=== PATIENT | female | born 1990 | race Caucasian/White ===

== ENCOUNTER 2020-02-12 16:26 | Outpatient (CLI) | payer OTHER ==
[2020-02-12 17:04] LABS: BASOPHILS 0.1 % (0-2); EOSINOPHILS 0.4 % (0-7); HEMATOCRIT 36.7 % (36.0-48.0); HEMOGLOBIN 12.1 g/dL (12-16); IMMATURE GRANULOCYTES 0.4 % (0-5); LYMPHOCYTES 16.3 % (15-50); MCH 30.1 pg (26.0-34.0); MCV 91.3 fL (80.0-100.0); MEAN PLATELET VOLUME 9.9 fL (7.4-10.4); MONOCYTES 6.1 % (2-11); NEUTROPHILS 76.7 % (40-80); PLATELET COUNT 248 10x3/uL (130-400); RBC 4.02 10x6/uL (4.00-5.40); WBC 15.2 10x3/uL (4.8-10.8)
[2020-02-12 17:23] LABS: CALC OSMOLALITY 274 mosm/kg (275-300); CALCIUM 8.7 mg/dL (8.5-10.1); CARBON DIOXIDE 24.3 mmol/L (21.0-32.0); CHLORIDE - SERUM 107 mmol/L (98-107); CREATININE - SERUM 0.8 mg/dL (0.6-1.3); POTASSIUM - SERUM 4.1 mmol/L (3.5-5.1); SODIUM 139 mmol/L (136-145); UREA NITROGEN 9 mg/dL (7-18); eGFR NON AFRICAN AMERICAN 89 mL/min (90-120)
[2020-02-12 17:29] LABS: GLUCOSE 67 mg/dL (74-106)
[2020-02-12 17:36] LABS: ALBUMIN 2.4 g/dL (3.4-5.0); ALKALINE PHOSPHATASE 90 U/L (30-120); ALT (SGPT) 10 U/L (10-68); URIC ACID 7.3 mg/dL (2.6-7.2)
[2020-02-12 17:48] LABS: BILIRUBIN - DIRECT 0.03 mg/dL (0.00-0.30); BILIRUBIN - INDIRECT 0.17 mg/dL (0.00-1.00); PROTEIN - SERUM 6.6 g/dL (6.4-8.2)
[2020-02-12 19:10] LABS: UDS - AMPHET NEGATIVE QUAL (NEGATIVE); UDS - BARB NEGATIVE QUAL (NEGATIVE); UDS - BENZO NEGATIVE QUAL (NEGATIVE); UDS - COCAINE NEGATIVE QUAL (NEGATIVE); UDS - OPIATE NEGATIVE QUAL (NEGATIVE); UDS - PCP NEGATIVE QUAL (NEGATIVE); UDS - THC POSITIVE QUAL (NEGATIVE)
[2020-02-12 19:12] LABS: BILIRUBIN NEGATIVE (NEGATIVE); KETONE NEGATIVE (NEGATIVE); NITRITE NEGATIVE (NEGATIVE); UROBILINOGEN NORMAL (NORMAL)
[2020-02-14 11:21] LABS: PROTEIN - URINE 16.4 mg/dL (0.0-11.9)
== END 2020-02-12 23:59 | disposition home or self-care (01) ==
LOC: D.LDO 16:26 → D.LD 22:58 → D.LDO 22:58 → D.LD 23:59 → D.LDO 23:59
PROVIDERS: Student in an Organized Health Care Education/Training Program; ATTEND Obstetrics & Gynecology
DX: O16.9 Unspecified maternal hypertension, unspecified trimester (principal)

== ENCOUNTER → 2020-02-13 16:43 | Outpatient (CLI) | payer OTHER | END | disposition home or self-care (01) | LOC: D.LDO 16:43 | PROVIDERS: ATTEND Obstetrics & Gynecology | DX: O16.9 Unspecified maternal hypertension, unspecified trimester (principal) ==

== ENCOUNTER 2020-02-15 18:49 | Outpatient (CLI) | payer OTHER ==
[2020-02-15 20:12] LABS: HEMATOCRIT 37.5 % (36.0-48.0); HEMOGLOBIN 12.3 g/dL (12-16); MCH 29.8 pg (26.0-34.0); MCHC 32.8 g/dL (31.0-37.0); MCV 90.8 fL (80.0-100.0); MEAN PLATELET VOLUME 9.8 fL (7.4-10.4); RBC 4.13 10x6/uL (4.00-5.40); RDW 13.9 % (11.5-14.5); WBC 14.5 10x3/uL (4.8-10.8)
[2020-02-15 20:41] LABS: CALC OSMOLALITY 271 mosm/kg (275-300); CALCIUM 8.5 mg/dL (8.5-10.1); CARBON DIOXIDE 24.1 mmol/L (21.0-32.0); CHLORIDE - SERUM 105 mmol/L (98-107); CREATININE - SERUM 0.8 mg/dL (0.6-1.3); POTASSIUM - SERUM 4.1 mmol/L (3.5-5.1); SODIUM 137 mmol/L (136-145); UREA NITROGEN 13 mg/dL (7-18); eGFR NON AFRICAN AMERICAN 89 mL/min (90-120)
[2020-02-15 20:45] LABS: URIC ACID 7.5 mg/dL (2.6-7.2)
[2020-02-15 20:46] LABS: GLUCOSE 68 mg/dL (74-106)
[2020-02-16] MEDS ORDERED: KLONOPIN1 MG PO (03:40)
[2020-02-16 07:14] LABS: HEMATOCRIT 34.4 % (36.0-48.0); HEMOGLOBIN 11.1 g/dL (12-16); MCH 29.4 pg (26.0-34.0); MCHC 32.3 g/dL (31.0-37.0); MEAN PLATELET VOLUME 10.5 fL (7.4-10.4); RBC 3.78 10x6/uL (4.00-5.40); RDW 14.1 % (11.5-14.5); WBC 12.4 10x3/uL (4.8-10.8)
[2020-02-16 07:42] LABS: ALT (SGPT) 8 U/L (10-68); CALCIUM 8.2 mg/dL (8.5-10.1); CARBON DIOXIDE 22.3 mmol/L (21.0-32.0); CHLORIDE - SERUM 106 mmol/L (98-107); CREATININE - SERUM 0.8 mg/dL (0.6-1.3); POTASSIUM - SERUM 4.1 mmol/L (3.5-5.1); SODIUM 140 mmol/L (136-145); UREA NITROGEN 15 mg/dL (7-18); URIC ACID 7.6 mg/dL (2.6-7.2); eGFR NON AFRICAN AMERICAN 89 mL/min (90-120)
[2020-02-16 08:01] LABS: CALC OSMOLALITY 277 mosm/kg (275-300); GLUCOSE 59 mg/dL (74-106)
--- NOTE | 2020-02-16 08:55 | NUR ---
PT C/O HEADACHE. TYLENOL 650 MG GIVEN PO PER DR. CUMMINGS.
== END 2020-02-16 10:42 | disposition home or self-care (01) ==
LOC: D.LDO 18:49 → D.LD 21:31 → D.LDO 02-16 10:42
PROVIDERS: ATTEND Student in an Organized Health Care Education/Training Program
DX: O13.3 Gestational [pregnancy-induced] hypertension without significant proteinuria, third trimester (principal); Z3A.33 33 weeks gestation of pregnancy

== ENCOUNTER 2020-02-21 11:32 | Outpatient (CLI) | payer OTHER ==
[~2020-02-21 11:32] MED LIST: KLONOPIN1 MG PO
[2020-02-21 12:56] LABS: BASOPHILS 0.1 % (0-2); HEMATOCRIT 34.7 % (36.0-48.0); HEMOGLOBIN 11.3 g/dL (12-16); IMMATURE GRANULOCYTES 0.2 % (0-5); LYMPHOCYTES 21.3 % (15-50); MCH 29.7 pg (26.0-34.0); MCHC 32.6 g/dL (31.0-37.0); MCV 91.3 fL (80.0-100.0); MEAN PLATELET VOLUME 10.1 fL (7.4-10.4); MONOCYTES 8.6 % (2-11); NEUTROPHILS 68.8 % (40-80); PLATELET COUNT 221 10x3/uL (130-400); RDW 14.1 % (11.5-14.5); WBC 13.5 10x3/uL (4.8-10.8)
[2020-02-21 13:22] LABS: CALC OSMOLALITY 270 mosm/kg (275-300); CALCIUM 8.4 mg/dL (8.5-10.1); CARBON DIOXIDE 23.4 mmol/L (21.0-32.0); CHLORIDE - SERUM 105 mmol/L (98-107); CREATININE - SERUM 0.8 mg/dL (0.6-1.3); SODIUM 136 mmol/L (136-145); UREA NITROGEN 14 mg/dL (7-18); eGFR NON AFRICAN AMERICAN 89 mL/min (90-120)
[2020-02-21 13:24] LABS: GLUCOSE 68 mg/dL (74-106)
[2020-02-21 13:28] LABS: ALBUMIN 2.5 g/dL (3.4-5.0); ALKALINE PHOSPHATASE 102 U/L (30-120); ALT (SGPT) 9 U/L (10-68); BILIRUBIN - DIRECT 0.03 mg/dL (0.00-0.30); BILIRUBIN - INDIRECT 0.15 mg/dL (0.00-1.00); BILIRUBIN - TOTAL 0.18 mg/dL (0.2-1.3); PROTEIN - SERUM 5.5 g/dL (6.4-8.2); URIC ACID 6.1 mg/dL (2.6-7.2)
== END 2020-02-21 14:30 | disposition home or self-care (01) ==
LOC: D.LDO 11:32
PROVIDERS: ATTEND Obstetrics & Gynecology
DX: O16.9 Unspecified maternal hypertension, unspecified trimester (principal)

== ENCOUNTER 2020-02-24 18:42 | Observation (INO) | payer OTHER ==
[2020-02-24] MEDS ORDERED: NORMODYNE / TR100 MG PO (19:37)
[2020-02-24 20:22] LABS: BASOPHILS 0.1 % (0-2); EOSINOPHILS 0.6 % (0-7); HEMATOCRIT 34.7 % (36.0-48.0); HEMOGLOBIN 11.4 g/dL (12-16); IMMATURE GRANULOCYTES 0.3 % (0-5); MCHC 32.9 g/dL (31.0-37.0); MCV 91.3 fL (80.0-100.0); MEAN PLATELET VOLUME 10.5 fL (7.4-10.4); MONOCYTES 6.4 % (2-11); NEUTROPHILS 75.6 % (40-80); PLATELET COUNT 257 10x3/uL (130-400); WBC 17.9 10x3/uL (4.8-10.8)
[2020-02-24 20:28] LABS: CALC OSMOLALITY 271 mosm/kg (275-300); CALCIUM 8.6 mg/dL (8.5-10.1); CARBON DIOXIDE 21.8 mmol/L (21.0-32.0); CHLORIDE - SERUM 105 mmol/L (98-107); CREATININE - SERUM 0.8 mg/dL (0.6-1.3); GLUCOSE 78 mg/dL (74-106); POTASSIUM - SERUM 4.4 mmol/L (3.5-5.1); SODIUM 136 mmol/L (136-145); UREA NITROGEN 14 mg/dL (7-18); eGFR NON AFRICAN AMERICAN 89 mL/min (90-120)
[2020-02-24 20:35] LABS: ALBUMIN 2.5 g/dL (3.4-5.0); ALKALINE PHOSPHATASE 104 U/L (30-120); ALT (SGPT) 9 U/L (10-68); BILIRUBIN - DIRECT 0.06 mg/dL (0.00-0.30); BILIRUBIN - INDIRECT 0.05 mg/dL (0.00-1.00); BILIRUBIN - TOTAL 0.11 mg/dL (0.2-1.3); PROTEIN - SERUM 5.6 g/dL (6.4-8.2); URIC ACID 6.4 mg/dL (2.6-7.2)
[2020-02-24 23:30] LABS: BILIRUBIN NEGATIVE (NEGATIVE); KETONE NEGATIVE (NEGATIVE); NITRITE NEGATIVE (NEGATIVE); UROBILINOGEN NORMAL mg/dL (< 2)
[2020-02-25 09:16] LABS: BASOPHILS 0.1 % (0-2); EOSINOPHILS 1.3 % (0-7); HEMATOCRIT 38.5 % (36.0-48.0); HEMOGLOBIN 12.6 g/dL (12-16); IMMATURE GRANULOCYTES 0.4 % (0-5); LYMPHOCYTES 25.7 % (15-50); MCH 30.1 pg (26.0-34.0); MCHC 32.7 g/dL (31.0-37.0); MCV 91.9 fL (80.0-100.0); MEAN PLATELET VOLUME 10.4 fL (7.4-10.4); MONOCYTES 6.9 % (2-11); NEUTROPHILS 65.6 % (40-80); PLATELET COUNT 259 10x3/uL (130-400); RBC 4.19 10x6/uL (4.00-5.40); RDW 14.1 % (11.5-14.5); WBC 13.8 10x3/uL (4.8-10.8)
--- NOTE | 2020-02-25 10:34 | MORECARE ---
CASE MANAGEMENT DISCHARGE SUMMARY PATIENT: IRENE CUMMINGS UNIT: [id number] ADM DATE: 02/24/20 AGE: 29 : 88 SEX: F ROOM/BED: D.1276 AUTHOR: ARMIN SILVA PHYSICIAN: REFERRING PHYSICIAN: EVELYNE CORDERO MD DATE OF SERVICE: 02/25/20 Discharge Plan Patient Name: IRENE CUMMINGS Facility: [facility]:[place] : 1990 Planned Disposition: Home Anticipated Discharge Date: 02/25/20 Discharge Date: Expected LOS: 1 Initial Reviewer: [email or web address] Initial Review Date: 02/24/2020 Generated: 02/25/20 11:33 am Patient Name: IRENE CUMMINGS Page 87012 at 1034 All edits/amendments must be made on the electronic document DICTATION DATE: 02/25/20 1033 HARDWARE DEVELOPER: LUÍS 02/25/20 1033 RPT#: [id number] DC DATE: STATUS: ADM IN [facility] [address] [place] [address] END OF REPORT
[2020-02-25 12:03] LABS: PROTEIN - URINE 17.2 mg/dL (0.0-11.9)
--- NOTE | 2020-02-25 17:50 | MORECARE ---
CASE MANAGEMENT DISCHARGE SUMMARY PATIENT: IRENE CUMMINGS UNIT: [id number] ADM DATE: 02/24/20 AGE: 29 : 88 SEX: F ROOM/BED: D.1276 AUTHOR: ARMIN SILVA PHYSICIAN: REFERRING PHYSICIAN: EVELYNE CORDERO MD DATE OF SERVICE: 02/25/20 Discharge Plan Patient Name: IRENE CUMMINGS Facility: [facility]:[place] : 1990 Planned Disposition: Home Anticipated Discharge Date: 02/25/20 Discharge Date: 02/25/2020 Expected LOS: 1 Initial Reviewer: [email or web address] Initial Review Date: 02/25/2020 Generated: 02/25/20 6:49 pm Last DP export: 02/25/20 9:34 a Patient Name: IRENE CUMMINGS Page 96977 at 1750 All edits/amendments must be made on the electronic document DICTATION DATE: 02/25/201749 DIRECTOR INSURANCE: LUÍS 02/25/201749 RPT#: [id number] DC DATE:02/25/20 STATUS: DIS IN [facility] [address] [place] [address] END OF REPORT
== END 2020-02-25 14:13 | disposition home or self-care (01) ==
LOC: D.LDO 18:42 → OBSVTIME 20:10 → D.LD 20:10
PROVIDERS: ADMIT Obstetrics & Gynecology; ATTEND Obstetrics & Gynecology
DX: O13.3 Gestational [pregnancy-induced] hypertension without significant proteinuria, third trimester (principal); Z3A.34 34 weeks gestation of pregnancy

== ENCOUNTER 2020-02-27 09:05 | Inpatient (IN) | payer OTHER ==
[~2020-02-27] VITALS: Ht 177.8 cm; Wt 98.4 kg
--- NOTE | ~2020-02-27 | OP ---
PATIENT NAME: IRENE CUMMINGS MEDICAL RECORD: [id number] :[birth year] LOCATION:[facility] [id number] ADMISSION DATE:02/27/20 SURGEON: SILVESTRE BERNABE MD DATE OF OPERATION: 03/05/2020 PREOPERATIVE DIAGNOSES: 1. Intrauterine at 36 weeks. 2. Severe preeclampsia. 3. The patient desires primary section. POSTOPERATIVE DIAGNOSES: 1. Intrauterine at 36 weeks. 2. Severe preeclampsia. 3. The patient desires primary section. PROCEDURE: A primary low transverse section. SURGEON: Silvestre Bernabe MD ANESTHESIA: Regional via spinal. INTRAVENOUS FLUIDS: Per anesthesia record. ESTIMATED BLOOD LOSS: 1000 cc. SPECIMENS: Placenta and cord for gases. FINDINGS: 1. Viable , Apgars 9 at one and 9 at five. 2. Placenta delivered manually intact, 3-vessel cord noted. 3. Normal adnexa bilaterally. COMPLICATIONS: None apparent. PROCEDURE: The patient taken to the operating room where regional anesthesia was achieved without difficulty. The patient was then prepped and draped in normal sterile fashion in the dorsal supine position. SCDs were on and functioning normally. A Heath catheter had been placed and was draining freely. Following testing prep and drape, a Pfannenstiel skin incision was made, extended downward to the underlying subcutaneous fat to level of the fascia. The fascia was then excised in the midline and extended bilaterally using the Jung scissors and Bovie cautery. The superior and inferior aspects of the fascial incision were grasped with Ari clamps times 2, tented upward, and sharply dissected from the underlying rectus muscle using the Jung scissors and the Bovie cautery. Rectus muscle was bluntly in the midline and the peritoneum entered sharply at the superior aspect of the incision using the Metzenbaum scissors. The peritoneal incision was then extended laterally and inferiorly using the Metzenbaum scissors. A bladder blade was placed into the pelvis and a bladder flap was created by excising the anterior leaf of the broad ligament across the lower uterine segment. This was further developed digitally and the bladder blade was replaced over the bladder flap. A low transverse incision was made on the uterus with the scalpel and extended using the Pelosi method. The vertex was delivered atraumatically followed by the body. The infant was bulb suctioned upon delivery. Cord was clamped times 2, cut, and infant handed to the awaiting nursery team. Cord was then obtained for gases. OPERATIVE REPORT [id number] IRENE CUMMINGS Placenta was removed manually intact, 3-vessel cord was noted. Uterus was exteriorized, cleared of all clots and debris with a lap sponge and the uterine incision was repaired with 0 Vicryl in a running locked fashion times 2 with good hemostasis noted. Several areas of oozing from the uterine incision were oversewn with 0 Vicryl in a [id number]-jk-[id number] fashion until good hemostasis was recognized. The posterior cul-de-sac was then thoroughly irrigated and uterus was replaced into the pelvis. Anterior cul-de-sac was then thoroughly irrigated and good hemostasis was noted from the uterine incision. Counts were correct times 2 for sponges, needles, and instruments and the fascia was then repaired with 0 loop PDS times 1 and the skin repaired with mario. The patient tolerated procedure well, transferred to postanesthesia recovery stable without incident. TRANSINT:[id number] Voice Confirmation ID: [id number] DOCUMENT ID: [id number] SILVESTRE BERNABE MD CC: [id number] DICTATION DATE: 03/11/20 1545 SENIOR SOLUTIONS ENGINEER: 03/12/20 0118 DIS IN 03/06/20 [facility] [address] [place] [id number]
[~2020-02-27 09:05] MED LIST changes: +NORMODYNE / TR100 MG PO
[2020-02-27 11:12] LABS: BASOPHILS 0.1 % (0-2); EOSINOPHILS 0.9 % (0-7); HEMOGLOBIN 11.7 g/dL (12-16); IMMATURE GRANULOCYTES 0.5 % (0-5); LYMPHOCYTES 21.3 % (15-50); MCH 29.8 pg (26.0-34.0); MCHC 32.5 g/dL (31.0-37.0); MCV 91.8 fL (80.0-100.0); MEAN PLATELET VOLUME 10.5 fL (7.4-10.4); MONOCYTES 8.9 % (2-11); NEUTROPHILS 68.3 % (40-80); PLATELET COUNT 248 10x3/uL (130-400); RBC 3.92 10x6/uL (4.00-5.40); WBC 13.8 10x3/uL (4.8-10.8)
[2020-02-27 11:19] LABS: CALC OSMOLALITY 273 mosm/kg (275-300); CALCIUM 8.9 mg/dL (8.5-10.1); CARBON DIOXIDE 23.4 mmol/L (21.0-32.0); CHLORIDE - SERUM 107 mmol/L (98-107); CREATININE - SERUM 0.8 mg/dL (0.6-1.3); GLUCOSE 85 mg/dL (74-106); POTASSIUM - SERUM 4.3 mmol/L (3.5-5.1); SODIUM 137 mmol/L (136-145); UREA NITROGEN 15 mg/dL (7-18); eGFR NON AFRICAN AMERICAN 89 mL/min (90-120)
[2020-02-27 11:25] LABS: ALBUMIN 2.4 g/dL (3.4-5.0); ALKALINE PHOSPHATASE 102 U/L (30-120); ALT (SGPT) 10 U/L (10-68); PROTEIN - SERUM 5.9 g/dL (6.4-8.2); URIC ACID 6.8 mg/dL (2.6-7.2)
[2020-02-27 11:29] LABS: UDS - AMPHET NEGATIVE QUAL (NEGATIVE); UDS - BARB NEGATIVE QUAL (NEGATIVE); UDS - BENZO POSITIVE QUAL (NEGATIVE); UDS - COCAINE NEGATIVE QUAL (NEGATIVE); UDS - OPIATE NEGATIVE QUAL (NEGATIVE); UDS - PCP NEGATIVE QUAL (NEGATIVE); UDS - THC POSITIVE QUAL (NEGATIVE)
[2020-02-27 11:38] LABS: BILIRUBIN - INDIRECT 0.14 mg/dL (0.00-1.00); BILIRUBIN - TOTAL 0.16 mg/dL (0.2-1.3)
[2020-02-27 11:42] LABS: BILIRUBIN - DIRECT 0.02 mg/dL (0.00-0.30)
[2020-02-27 12:03] VITALS: BP 151/86; BMI 31.2
[2020-02-28 07:18] LABS: RAPID PLASMA REAGIN Non Reactive (Non Reactive)
[2020-02-28 13:39] VITALS: Ht 177.8 cm; Wt 98.4 kg
--- NOTE | 2020-02-29 17:28 | MORECARE ---
CASE MANAGEMENT DISCHARGE SUMMARY PATIENT: IRENE CUMMINGS UNIT: [id number] ADM DATE: 02/27/20 AGE: 29 : 86 SEX: F ROOM/BED: D.1273 AUTHOR: ARMIN SILVA PHYSICIAN: REFERRING PHYSICIAN: EVELYNE CORDERO MD DATE OF SERVICE: 02/29/20 Discharge Plan Patient Name: IRENE CUMMINGS Facility: [facility]:[place] : 1990 Planned Disposition: Home Anticipated Discharge Date: Discharge Date: Expected LOS: Initial Reviewer: [email or web address] Initial Review Date: 02/27/2020 Generated: 02/29/20 6:27 pm Patient Name: IRENE CUMMINGS Page 53096 at 1728 All edits/amendments must be made on the electronic document DICTATION DATE: 02/29/201726 STOPPER SETTER: LUÍS 02/29/201726 RPT#: [id number] DC DATE: STATUS: ADM IN [facility] [address] [place] [address] END OF REPORT
[2020-02-29 19:55] VITALS: BP 134/83
[2020-02-29 21:21] LABS: BASOPHILS 0.1 % (0-2); EOSINOPHILS 0.5 % (0-7); HEMATOCRIT 36.2 % (36.0-48.0); HEMOGLOBIN 12.1 g/dL (12-16); IMMATURE GRANULOCYTES 0.4 % (0-5); LYMPHOCYTES 19.1 % (15-50); MCH 30.6 pg (26.0-34.0); MCHC 33.4 g/dL (31.0-37.0); MCV 91.4 fL (80.0-100.0); MEAN PLATELET VOLUME 10.3 fL (7.4-10.4); NEUTROPHILS 73.9 % (40-80); PLATELET COUNT 254 10x3/uL (130-400); RBC 3.96 10x6/uL (4.00-5.40); RDW 13.8 % (11.5-14.5); WBC 15.2 10x3/uL (4.8-10.8)
[2020-02-29 21:34] LABS: ALBUMIN 2.5 g/dL (3.4-5.0); ALKALINE PHOSPHATASE 103 U/L (30-120); ALT (SGPT) 8 U/L (10-68); BILIRUBIN - TOTAL 0.28 mg/dL (0.2-1.3); CALC OSMOLALITY 271 mosm/kg (275-300); CALCIUM 8.7 mg/dL (8.5-10.1); CARBON DIOXIDE 23.1 mmol/L (21.0-32.0); CHLORIDE - SERUM 105 mmol/L (98-107); CREATININE - SERUM 0.8 mg/dL (0.6-1.3); GLUCOSE 109 mg/dL (74-106); POTASSIUM - SERUM 3.8 mmol/L (3.5-5.1); PROTEIN - SERUM 6.3 g/dL (6.4-8.2); SODIUM 135 mmol/L (136-145); UREA NITROGEN 14 mg/dL (7-18); eGFR NON AFRICAN AMERICAN 89 mL/min (90-120)
[2020-02-29 22:10] LABS: BILIRUBIN NEGATIVE (NEGATIVE); KETONE NEGATIVE (NEGATIVE); NITRITE NEGATIVE (NEGATIVE); UROBILINOGEN NORMAL mg/dL (< 2)
[2020-02-29 22:15] LABS: BACTERIA FEW HPF (NONE SEEN); EPITHELIAL CELLS 0-5 /hpf (0-5); WHITE CELLS - URINE 0-5 HPF (0-4)
[2020-03-01 00:15] VITALS: BP 118/65
[2020-03-01 04:04] VITALS: BP 120/61
[2020-03-01 19:34] VITALS: BP 135/73
--- NOTE | 2020-03-03 09:43 | NUR ---
Nutrition Follow-up: Diet: Regular Spoke with nurse who states that patient is eating well. States that she is ordering off of special menu and that patient will be here for a few more days. Meds and labs reviewed. Recommend continue current diet and honor food preferences. RD following.
--- NOTE | 2020-03-03 20:10 | NUR ---
ASSESSMENT COMPLETED, SEE ASSESSMENT FLOW SHEET, POC DISCUSSED FOR THE NIGHT, AGREEABLE TO ALL PROCEDURES FAR FHR CHECK Q 8 AND VS CHECK Q 4. SIG OTHER AT BEDSIDE. PT C/O BOTTOMS OF FEET CRAMPING, ASSESSMENT OF BOTTOM OF FEET WNL.
--- NOTE | 2020-03-03 22:15 | NUR ---
SIG OTHER BROUGHT IN FOOD FOR THE PT, DENIES FURTHER NEEDS. PT IN GOOD SPIRITS, NO NEEDS VOICED.
[2020-03-03 22:36] LABS: BASOPHILS 0.2 % (0-2); EOSINOPHILS 0.9 % (0-7); HEMATOCRIT 38.9 % (36.0-48.0); HEMOGLOBIN 12.7 g/dL (12-16); IMMATURE GRANULOCYTES 0.3 % (0-5); LYMPHOCYTES 22.8 % (15-50); MCH 30.2 pg (26.0-34.0); MCHC 32.6 g/dL (31.0-37.0); MCV 92.4 fL (80.0-100.0); MEAN PLATELET VOLUME 10.5 fL (7.4-10.4); MONOCYTES 6.9 % (2-11); NEUTROPHILS 68.9 % (40-80); PLATELET COUNT 275 10x3/uL (130-400); RBC 4.21 10x6/uL (4.00-5.40); RDW 13.8 % (11.5-14.5); WBC 15.8 10x3/uL (4.8-10.8)
[2020-03-03 22:51] LABS: CALC OSMOLALITY 274 mosm/kg (275-300); CALCIUM 8.8 mg/dL (8.5-10.1); CARBON DIOXIDE 26.2 mmol/L (21.0-32.0); CHLORIDE - SERUM 105 mmol/L (98-107); CREATININE - SERUM 0.9 mg/dL (0.6-1.3); GLUCOSE 77 mg/dL (74-106); POTASSIUM - SERUM 4.2 mmol/L (3.5-5.1); SODIUM 137 mmol/L (136-145); UREA NITROGEN 18 mg/dL (7-18); eGFR NON AFRICAN AMERICAN 77 mL/min (90-120)
[2020-03-03 22:56] LABS: ALBUMIN 2.7 g/dL (3.4-5.0); ALKALINE PHOSPHATASE 112 U/L (30-120); ALT (SGPT) 9 U/L (10-68); BILIRUBIN - INDIRECT 0.15 mg/dL (0.00-1.00); BILIRUBIN - TOTAL 0.19 mg/dL (0.2-1.3); PROTEIN - SERUM 6.8 g/dL (6.4-8.2); URIC ACID 7.7 mg/dL (2.6-7.2)
[2020-03-03 22:57] LABS: BILIRUBIN - DIRECT 0.04 mg/dL (0.00-0.30)
--- NOTE | 2020-03-03 23:48 | NUR ---
room check pt sitting up in bed w/ sig other in bed with her, watching tv. pt denies discomfort, request apple juice, 2 x 120 ml apple juice given. no further needs voiced
--- NOTE | 2020-03-04 01:52 | NUR ---
room check, resting quietly in right lateral position, respirations deep and unlabored, did not disturb
[2020-03-04 11:11] LABS: UDSC - AMPHET Negative ng/mL (Cutoff=1000); UDSC - BARB Negative ng/mL (Cutoff=300); UDSC - BENZO Positive (Cutoff=300); UDSC - COC Negative ng/mL (Cutoff=300); UDSC - METH Negative ng/mL (Cutoff=300); UDSC - OPIATES Negative (Cutoff=300); UDSC - PCP Negative ng/mL (Cutoff=25); UDSC - PROPOXY Negative ng/mL (Cutoff=300); UDSC - THC Positive (Cutoff=50)
[2020-03-04 20:09] VITALS: BP 141/76
--- NOTE | 2020-03-05 06:21 | NUR ---
pt resting quietly with eyes closed, no distress noted. pt has slept well through night.
[2020-03-05 11:03] LABS: BASOPHILS 0.2 % (0-2); HEMATOCRIT 37.9 % (36.0-48.0); HEMOGLOBIN 12.6 g/dL (12-16); IMMATURE GRANULOCYTES 0.4 % (0-5); LYMPHOCYTES 19.7 % (15-50); MCH 30.4 pg (26.0-34.0); MCHC 33.2 g/dL (31.0-37.0); MCV 91.3 fL (80.0-100.0); MEAN PLATELET VOLUME 10.9 fL (7.4-10.4); MONOCYTES 7.5 % (2-11); NEUTROPHILS 71.2 % (40-80); PLATELET COUNT 244 10x3/uL (130-400); RBC 4.15 10x6/uL (4.00-5.40); RDW 13.8 % (11.5-14.5); WBC 17.4 10x3/uL (4.8-10.8)
[2020-03-05 11:56] LABS: ALBUMIN 2.3 g/dL (3.4-5.0); ALKALINE PHOSPHATASE 98 U/L (30-120); ALT (SGPT) 8 U/L (10-68); BILIRUBIN - DIRECT 0.05 mg/dL (0.00-0.30); BILIRUBIN - INDIRECT 0.06 mg/dL (0.00-1.00); BILIRUBIN - TOTAL 0.11 mg/dL (0.2-1.3); CALC OSMOLALITY 273 mosm/kg (275-300); CALCIUM 8.6 mg/dL (8.5-10.1); CARBON DIOXIDE 22.2 mmol/L (21.0-32.0); CHLORIDE - SERUM 108 mmol/L (98-107); CREATININE - SERUM 0.8 mg/dL (0.6-1.3); GLUCOSE 75 mg/dL (74-106); POTASSIUM - SERUM 4.3 mmol/L (3.5-5.1); SODIUM 137 mmol/L (136-145); UREA NITROGEN 16 mg/dL (7-18); URIC ACID 6.9 mg/dL (2.6-7.2); eGFR NON AFRICAN AMERICAN 89 mL/min (90-120)
--- NOTE | 2020-03-05 14:58 | NUR ---
pt. back to room via bed. report received from reading recovery teacher. pt. with abdominal dressing is c/d/i. Towels and pad changed. assessment completed. breath sounds clear. pt. is awake, alert and oriented x 4. discussed continued plan of care with pt. and updated concerning . pt. verbalizes understanding. Instructed regarding T/C/DB. Bowel sounds hypoactive x 4. Fundus firm, midline, u/+1 with moderate lochia rubra noted.
--- NOTE | 2020-03-05 15:02 | NUR ---
PATIENT SHIVERING UPON ENTRANCE TO RECOVERY ROOM. ALLERGIC TO DEMOROL. REVIEWED WITH ANESTHESIA. OK TO GIVE 12.5 TO SEE HOW PATIENT REACTS. ALLERGIC REACTION IS ITCHING. MAKAYLA OBSERVE.
[2020-03-05 15:14] VITALS: BP 138/71
[2020-03-05 17:17] VITALS: BP 144/75
--- NOTE | 2020-03-05 18:00 | NUR ---
magnesium hourly check performed. see paper charting.
--- NOTE | 2020-03-05 18:25 | NUR ---
pt. able to lift bottom off bed with minimal assistance. Chux, towels and pad changed. Heath cath emptied. pt. request blankets off of couch and is provided as requested. Inquired if pt. needed anything further prior to new shift coming on and pt. denies.
[2020-03-05 19:15] VITALS: BP 147/90
--- NOTE | 2020-03-05 19:15 | NUR ---
PT REC'D IN BED AT THIS TIME. STATES THAT PAIN IS A 7 AT THIS TIME. PT ENCOURAGED TO USE LAND RESOURCE SPECIALIST FOR PAIN CONTROL. IV OF NS 20 PITOCIN INFUSING TO THE RT HAND AT 50 ML/HR. SITE CLEAR AND PATENT. MAG SULFATE INFUSING AT 50 ML/HR. PT TOLERATING THERAPY WELL. FUNDUS FIRM AND MIDLINE U/2 SMALL LOCHIA NOTED. DRESSING TO ABDOMEN CDI AT THIS TIME. ICE PACK IN PLACE. MCCLURE CATH PATENT WITH CLEAR YELLOW URINE PRESENT. SCDS IN PLACE AND FUNCTIONAL. NO DISTRESS NOTED. CALL LIGHT IN EASY REACH. Елена HERRING RN
--- NOTE | 2020-03-05 20:00 | NUR ---
MAG LEVEL AND HEMOGRAM DRAWN AT THIS TIME. PT TOLERATED WELL. Елена HERRING RN
[2020-03-05 20:20] LABS: HEMATOCRIT 36.4 % (36.0-48.0); HEMOGLOBIN 12.1 g/dL (12-16); MCH 30.1 pg (26.0-34.0); MCHC 33.2 g/dL (31.0-37.0); MCV 90.5 fL (80.0-100.0); MEAN PLATELET VOLUME 10.6 fL (7.4-10.4); RBC 4.02 10x6/uL (4.00-5.40); RDW 13.6 % (11.5-14.5); WBC 20.8 10x3/uL (4.8-10.8)
--- NOTE | 2020-03-05 20:51 | NUR ---
DR CORDERO PAGED AT THIS TIME. RETURN CALL AT 2051. ELEVATED WHITE COUNT AND MAG LEVEL OF 3.9 REPORTED. ORDERS REC'D TO LEAVE MAG IS AND ORDER A CBC WITH DIFF IN THE MORNING. MD ALSO INFORMED OF LABETOLOL. CURRENT PRESSURES REPORTED AT THIS TIME. ORDER REC'D TO GIVE DOSE OF LABETOLOL NOW AND RESTART IN THE MORNING. NO DISTRESS NOTED. Елена HERRING RN
--- NOTE | 2020-03-05 21:00 | NUR ---
PT REC'D IN BED AT THIS TIME. NO NEEDS VOICED. S/O AT THE BEDISDE AND SUPPORTIVE. Елена HERRING RN
--- NOTE | 2020-03-05 22:10 | NUR ---
[facility] NO DISTRESS NOTED. DTRS 2+. ADEQUATE OUTPUT. Елена SHEEHAN RN
--- NOTE | 2020-03-06 00:05 | NUR ---
VSS. PT AFEBRILE ON PHONE. NO DISTRESS NOTED. Елена HERRING RN
--- NOTE | 2020-03-06 02:05 | NUR ---
MAG LEVEL DRAWN AND TO LAB. PT TOLERATED WELL. NO DISTRESS NOTED. Елена HERRING RN
--- NOTE | 2020-03-06 04:00 | NUR ---
PT REC'D IN BED AT THIS TIME. VSS. FITTER ARMAMENT REPLACED AT THIS TIME. NO DISTRESS NOTED Елена HERRING RN
--- NOTE | 2020-03-06 06:00 | NUR ---
PT REC'D IN BED AT THIS TIME. NO DISTRESS NOTED AT THIS TIME. PERICARE PERFORMED AT THIS TIME. SCANT LOCHIA NOTED AT THIS TIME. DRESSING REMAINS CDI. Елена HERRING RN
--- NOTE | 2020-03-06 07:00 | NUR ---
RECEIVED PT IN SEMI-KNIGHT'S POSITION IN BED. AWAKE. AAO X 3. VSS. HRRR WITHOUT AUDIBLE MURMUR. BBS CLEAR. BS X 4. ABDOMEN SOFT/NON-DISTENDED. DENIES PASSING GAS. FUNDUS FIRM AT U/2. RUBRA LOCHIA SMALL AMT. PERIPAD CHANGED. NO CLOTS NOTED. ABDOMINAL DRESSING DRY WITHOUT DRAINAGE NOTED. MCCLURE TO GRAVITY DRAINING CLEAR, STRAW COLORED URINE. 650 ML EMPTIED FROM BAG. NEG HOMANS' SIGN. PPP. NO EDEMA NOTED TO BLE. SCDS ON BLE. PUMP ON. PIV SITE CLEAR TO LEFT HAND. NS WITH PITOCIN 40 UNITS INFUSING AT 50 ML/HR. MAGNESIUM SULFATE INFUSING AT 50 ML/HR. DILAUDID VEHICLE GLASS TECHNICIAN INFUSING. PT STATES PAIN CONTROLLED. SR UP X 2. CALL LIGHT IN REACH.
--- NOTE | 2020-03-06 07:58 | NUR ---
DR CORDERO VISITS WITH PT. ORDERS RECEIVED.
[2020-03-06 08:07] LABS: HEMATOCRIT 36.6 % (36.0-48.0); HEMOGLOBIN 12.2 g/dL (12-16); MCH 30.1 pg (26.0-34.0); MCHC 33.3 g/dL (31.0-37.0); MCV 90.4 fL (80.0-100.0); MEAN PLATELET VOLUME 10.4 fL (7.4-10.4); PLATELET COUNT 219 10x3/uL (130-400); RBC 4.05 10x6/uL (4.00-5.40); RDW 13.6 % (11.5-14.5); WBC 15.9 10x3/uL (4.8-10.8)
--- NOTE | 2020-03-06 08:20 | NUR ---
PIV CONVERTED TO SALINE LOCK. PT SITTING UP IN BED. CONSUMING REG DIET. TOLERATING WELL.
[2020-03-06 09:09] LABS: EOSINOPHILS 1 % (0-7); LYMPHOCYTES 20 % (15-50); MONOCYTES 11 % (2-11); NEUTROPHILS 68 % (40-80); PLATELET ESTIMATE NORMAL
--- NOTE | 2020-03-06 09:12 | NUR ---
DR CORDERO NOTIFIED OF CBC RESULTS.
--- NOTE | 2020-03-06 09:25 | NUR ---
MCCLURE DC'D WITH 425 ML OF STRAW COLORED URINE NOTED IN BAG. PT AMB TO BR. VOIDS LESS THAN 50 ML OF BLOOD-TINGED URINE. PERICARE DONE PER PT. PAD CHANGED. PT SITS UP ON COUCH. BED LINEN CHANGED.
[2020-03-06 09:33] VITALS: BP 107/70
--- NOTE | 2020-03-06 09:33 | NUR ---
PT C/O FEELING LIGHTHEADED. PT ASSISTED BACK TO BED. VS NOTED. PT STATES FEELING BETTER AFTER LYING DOWN. SCANT RUBRA LOCHIA NOTED ON PERIPAD. PT REPOSITIONS TO RIGHT SIDE. ICE PACK TO INCISION. PT REQUESTS LIGHTS OUT FOR REST.
--- NOTE | 2020-03-06 10:30 | NUR ---
PT LYING TO RIGHT SIDE IN BED. WAKES UPON ENTERING ROOM. PT DENIES C/O OR NEEDS. STATES "FEELING BETTER".
--- NOTE | 2020-03-06 12:19 | NUR ---
PT MIXER TENDER LIGHT. THIS NURSE TO ROOM. PT GETTING BACK INTO BED. STATES VOIDED. 850 ML OF BLOOD-TINGED URINE NOTED IN SPECIPAN. PT ALISON ACTIVITY WELL. REGULAR DIET SERVED.
--- NOTE | 2020-03-06 12:22 | NUR ---
PT INSTRUCTED ON TCDB. PT DEMONSTRATES UNDERSTANDING.
--- NOTE | 2020-03-06 13:48 | NUR ---
PT LYING TO LEFT SIDE IN BED. WAKES UPON ENTERING ROOM. VSS. PT STATES DESIRE TO NAP AT THIS TIME. STATES "I'M SO TIRED". PT STATES DESIRE TO STAY OVERNIGHT AND NOT DISCHARGE TODAY.
[2020-03-06 13:49] VITALS: BP 110/58
--- NOTE | 2020-03-06 14:05 | NUR ---
PT SECURITIES SALES ASSOCIATE LIGHT. THIS NURSE TO ROOM. PT SITTING ON COUCH WITH SO. STATES DESIRE TO SHOWER. LINENS PROVIDED. PT STATES "I WANT TO BE DISCHARGED". PT STATES WILL GO SEE THIS EVENING. SO AGREES THAT PT WILL GO SEE THIS EVENING.
--- NOTE | 2020-03-06 14:38 | NUR ---
DR CORDERO NOTIFIED OF PT REQUEST TO DISCHARGE HOME. ORDER RECEIVED TO DC HOME. RX ON CHART.
[2020-03-06] MEDS ORDERED: MOTRIN600 MG PO (14:42)
[2020-03-06] MEDS ORDERED: HYDROCODON-ACE1 EA10 PO (14:42)
--- NOTE | 2020-03-06 15:45 | NUR ---
PT GIVEN DISCHARGE INSTRUCTIONS. COPIES GIVEN TO PT. RX FOR NORCO AND MOTRIN GIVEN TO PT. SL DC'D WITH CATHELON INTACT. TDAP 0.5 ML GIVEN IM TO LEFT DELTOID. PT ALISON WELL.
--- NOTE | 2020-03-06 15:51 | NUR ---
NORCO 10/325 AND MOTRIN GIVEN PO ORDERED FOR PT C/O ABDOMINAL CRAMPING. PT INSTRUCTED ON MEDS. PT ALSO GIVEN COLACE AND LABETELOL 100 MG PO. PT INSTRUCTED ON ALL MEDS. VERBALIZES UNDERSTANDING.
--- NOTE | 2020-03-06 16:00 | NUR ---
PT READY FOR DISCHARGE. DISCHARGED IN STABLE CONDITION VIA WHEELCHAIR TO PRIVATE VEHICLE. PT ALISON WELL.
--- NOTE | 2020-03-06 18:07 | MORECARE ---
CASE MANAGEMENT DISCHARGE SUMMARY PATIENT: IRENE CUMMINGS UNIT: [id number] ADM DATE: 02/27/20 AGE: 29 : 86 SEX: F ROOM/BED: D.1273 AUTHOR: ARMIN SILVA PHYSICIAN: REFERRING PHYSICIAN: EVELYNE CORDERO MD DATE OF SERVICE: 03/06/20 Discharge Plan Patient Name: IRENE CUMMINGS Facility: [facility]:[place] : 1990 Planned Disposition: Home Anticipated Discharge Date: Discharge Date: 03/06/2020 Expected LOS: Initial Reviewer: [email or web address] Initial Review Date: 02/27/2020 Generated: 03/06/20 7:07 pm Comments DCP- Discharge Planning Updated by [email or web address]: Jocelyn Conn on 03/06/20 5:[address] Patient had been DC'd home prior to CM visit. Last DP export: 02/29/20 4:27 p Patient Name: IRENE CUMMINGS Page 14735 at 1807 All edits/amendments must be made on the electronic document DICTATION DATE: 03/06/201806 CLINICAL PHLEBOTOMIST: LUÍS 03/06/201806 RPT#: [id number] DC DATE:03/06/20 STATUS: DIS IN [facility] [address] [place] [address] END OF REPORT
--- NOTE | 2020-03-07 09:07 | MORECARE ---
CASE MANAGEMENT DISCHARGE SUMMARY PATIENT: IRENE CUMMINGS UNIT: [id number] ADM DATE: 02/27/20 AGE: 29 : 86 SEX: F ROOM/BED: D.1273 AUTHOR: ARMIN SILVA PHYSICIAN: REFERRING PHYSICIAN: EVELYNE CORDERO MD DATE OF SERVICE: 03/07/20 Discharge Plan Patient Name: IRENE CUMMINGS Facility: [facility]:[place] : 1990 Planned Disposition: Home Anticipated Discharge Date: Discharge Date: 03/06/2020 Expected LOS: Initial Reviewer: [email or web address] Initial Review Date: 02/27/2020 Generated: 03/07/20 10:07 am Comments DCP- Discharge Planning Updated by [email or web address]: Jocelyn Conn on 03/06/20 5:[address] Patient had been DC'd home prior to CM visit. Last DP export: 03/06/20 5:07 p Patient Name: IRENE CUMMINGS Page 32622 at 0907 All edits/amendments must be made on the electronic document DICTATION DATE: 03/07/20906 SUPERVISOR SANDBLASTER: LUÍS 03/07/20906 RPT#: [id number] DC DATE:03/06/20 STATUS: DIS IN [facility] [address] [place] [address] END OF REPORT
== END 2020-03-06 16:00 | disposition home or self-care (01) | DRG 788 ==
LOC: D.LDO 09:05 → D.LD 11:09
PROVIDERS: Obstetrics & Gynecology; ADMIT Obstetrics & Gynecology; ATTEND Obstetrics & Gynecology
PROC: 10D00Z1 Extraction of Products of Conception, Low, Open Approach (ICD-10-PCS; principal; 2020-03-05 12:00)
DX: O14.94 Unspecified pre-eclampsia, complicating childbirth (principal); Z3A.35 35 weeks gestation of pregnancy; Z37.0 Single live birth; O60.14X0 Preterm labor third trimester with preterm delivery third trimester, not applicable or unspecified; K59.00 Constipation, unspecified; O99.324 Drug use complicating childbirth; F12.90 Cannabis use, unspecified, uncomplicated; O14.14 Severe pre-eclampsia complicating childbirth